=== PATIENT | male | born 1980 | race African-American/Black ===

== ENCOUNTER 2019-02-09 21:33 | Inpatient (IN) ==
[2019-02-09] MEDS ORDERED: NICOTINE 21 MG/24 HR PATCH TRANSDERM PRN (22:48)
[2019-02-09] MEDS ORDERED: ONDANSETRON 4 MG/2 ML VIAL IV PRN (22:48)
[2019-02-09] MEDS ORDERED: hydrALAZINE 20 MG/1 ML VIAL IV PRN (22:48)
[2019-02-09 22:55] LABS: Basophils # 0.1 10*3/uL (0.0-0.2); Eosinophils # 0.4 10*3/uL (0.0-0.87); Eosinophils % 5.3 % (0.00-10.9); Hematocrit 31.1 VOL% (42.0-52.0); Hemoglobin 9.7 GM/DL (14.0-18.0); Immature Granulocytes % 0.4 %; Immature Granulocytes Absolute 0.03 #; Lymphocytes # 0.8 10*3/uL (1.4-4.0); Lymphocytes % 11.5 % (21.2-54.2); Mean Corpuscular HGB Conc 31.2 GM/DL (32-36); Mean Platelet Volume 11.6 FL (9.6-12.0); Monocytes % 8.1 % (1.7-12.7); Neutrophils % 73.7 % (38.7-73.9); Platelet Count 139 T/CUMM (130-400); Red Blood Count 3.38 MC/CUMM (3.8-5.5); Red Cell Distribution Width 16.4 % (9.3-17.3)
[2019-02-09 23:11] LABS: PT Patient Result 10.5 SECS
[2019-02-09 23:14] LABS: Albumin 3.4 G/DL (3.4-5.0); Bilirubin,Total 0.4 MG/DL (0.2-1.0); Calcium 8.7 MG/DL (8.5-10.1); Osmolality,Calculated 295.4 MOS/KG (273-304); Total Protein 7.1 G/DL (6.4-8.3)
[2019-02-10] MEDS ORDERED: amLODIPine 10 MG TABLET PO ONE (03:33)
[2019-02-10 05:47] LABS: Basophils # 0.1 10*3/uL (0.0-0.2); Basophils % 0.9 % (0.0-0.8); Eosinophils # 0.3 10*3/uL (0.0-0.87); Eosinophils % 6.5 % (0.00-10.9); Hematocrit 26.1 VOL% (42.0-52.0); Hemoglobin 8.4 GM/DL (14.0-18.0); Immature Granulocytes % 0.2 %; Immature Granulocytes Absolute 0.01 #; Lymphocytes # 0.7 10*3/uL (1.4-4.0); Lymphocytes % 12.3 % (21.2-54.2); Mean Corpuscular HGB Conc 32.2 GM/DL (32-36); Mean Corpuscular Volume 91.6 FL (87-102); Mean Platelet Volume 11.4 FL (9.6-12.0); Monocytes % 8.7 % (1.7-12.7); Neutrophils % 71.4 % (38.7-73.9); Platelet Count 122 T/CUMM (130-400); Red Blood Count 2.85 MC/CUMM (3.8-5.5); Red Cell Distribution Width 16.2 % (9.3-17.3); White Blood Count 5.3 T/CUMM (4-12)
[2019-02-10] MEDS: hydrALAZINE 20 MG/1 ML VIAL IV PRN (06:17)
[2019-02-10] MEDS: DILTIAZEM CD 120 MG CAPSULE PO SCH (08:00)
[2019-02-10] MEDS: METOPROLOL SUCCINATE XL 100 MG TABLET PO SCH (08:00)
[2019-02-10] MEDS: amLODIPine 10 MG TABLET PO SCH (08:00)
[2019-02-10] MEDS ORDERED: CLINDAMYCIN INJ 900 MG in PREMIX 1 EACH IV ONE (08:31)
[2019-02-10] MEDS ORDERED: BUPIVACAINE MPF 0.25% /EPI 30 ML VIAL ONE (12:10)
[2019-02-10] MEDS ORDERED: HEPARIN 5,000 UNIT/1 ML VIAL ONE ×2 (12:10→12:14)
[2019-02-10] MEDS ORDERED: LIDOCAINE 1% 20 ML VIAL ONE (12:10)
[2019-02-10] MEDS ORDERED: SODIUM CHLORIDE 0.9% 250 ML IV SCH (12:30)
[2019-02-10] MEDS ORDERED: PROPOFOL 200 MG/20 ML VIAL IV ONE (13:27)
[2019-02-10] MEDS ORDERED: MIDAZOLAM 2 MG/2 ML VIAL ONE (13:28)
[2019-02-10] MEDS ORDERED: fentaNYL 100 MCG/2 ML VIAL ONE (13:28)
[2019-02-10] MEDS: MORPHINE 4 MG/1 ML VIAL IV PRN (17:48)
[2019-02-11] MEDS: MORPHINE 4 MG/1 ML VIAL IV PRN ×3 (01:00→21:20)
[2019-02-11 05:59] LABS: Basophils % 0.8 % (0.0-0.8); Eosinophils # 0.4 10*3/uL (0.0-0.87); Eosinophils % 7.7 % (0.00-10.9); Hematocrit 28.8 VOL% (42.0-52.0); Hemoglobin 9.1 GM/DL (14.0-18.0); Immature Granulocytes % 0.2 %; Immature Granulocytes Absolute 0.01 #; Lymphocytes # 0.5 10*3/uL (1.4-4.0); Lymphocytes % 10.6 % (21.2-54.2); Mean Corpuscular HGB Conc 31.6 GM/DL (32-36); Mean Corpuscular Volume 91.4 FL (87-102); Mean Platelet Volume 11.6 FL (9.6-12.0); Monocytes % 8.7 % (1.7-12.7); Platelet Count 103 T/CUMM (130-400); Red Blood Count 3.15 MC/CUMM (3.8-5.5); Red Cell Distribution Width 15.8 % (9.3-17.3); White Blood Count 4.8 T/CUMM (4-12)
[2019-02-11 06:26] LABS: Calcium 8.6 MG/DL (8.5-10.1); Osmolality,Calculated 283.5 MOS/KG (273-304)
[2019-02-11] MEDS: amLODIPine 10 MG TABLET PO SCH (08:17)
[2019-02-11] MEDS: METOPROLOL SUCCINATE XL 100 MG TABLET PO SCH (08:18)
[2019-02-11] MEDS: DILTIAZEM CD 120 MG CAPSULE PO SCH (08:18)
[2019-02-11] MEDS: CALCIUM ACETATE 667 MG CAPSULE PO SCH ×2 (12:10→16:38)
[2019-02-12] MEDS: hydrALAZINE 20 MG/1 ML VIAL IV PRN (04:19)
[2019-02-12 04:45] LABS: Basophils % 0.4 % (0.0-0.8); Eosinophils # 0.6 10*3/uL (0.0-0.87); Eosinophils % 11.1 % (0.00-10.9); Hematocrit 26.7 VOL% (42.0-52.0); Hemoglobin 8.3 GM/DL (14.0-18.0); Immature Granulocytes % 0.4 %; Immature Granulocytes Absolute 0.02 #; Lymphocytes # 0.6 10*3/uL (1.4-4.0); Lymphocytes % 11.3 % (21.2-54.2); Mean Corpuscular HGB Conc 31.1 GM/DL (32-36); Mean Corpuscular Volume 91.1 FL (87-102); Mean Platelet Volume 12.3 FL (9.6-12.0); Monocytes % 9.8 % (1.7-12.7); Platelet Count 104 T/CUMM (130-400); Red Blood Count 2.93 MC/CUMM (3.8-5.5); Red Cell Distribution Width 15.5 % (9.3-17.3); White Blood Count 5.2 T/CUMM (4-12)
[2019-02-12 05:12] LABS: Calcium 8.4 MG/DL (8.5-10.1); Osmolality,Calculated 290.8 MOS/KG (273-304)
[2019-02-12 06:01] LABS: Eosinophils 12 % (0-10); Hypochromasia 1+; Lymphocytes 7 % (20-55); Platelet Estimate Decreased; Segmented Neutrophils 74 % (50-85); Total Cells Counted 100
[2019-02-12] MEDS: CALCIUM ACETATE 667 MG CAPSULE PO SCH ×3 (08:02→17:04)
[2019-02-12] MEDS: DILTIAZEM CD 120 MG CAPSULE PO SCH (13:47)
[2019-02-12] MEDS: amLODIPine 10 MG TABLET PO SCH (13:48)
[2019-02-12] MEDS: METOPROLOL SUCCINATE XL 100 MG TABLET PO SCH (13:48)
[2019-02-13] MEDS: CALCIUM ACETATE 667 MG CAPSULE PO SCH ×3 (09:25→17:25)
[2019-02-13] MEDS: DILTIAZEM CD 120 MG CAPSULE PO SCH (09:25)
[2019-02-13] MEDS: amLODIPine 10 MG TABLET PO SCH (09:26)
[2019-02-13] MEDS: METOPROLOL SUCCINATE XL 100 MG TABLET PO SCH (09:26)
[2019-02-13 16:57] VITALS: BP 151/75
== END 2019-02-13 18:02 | disposition home or self-care (01) | DRG 252 ==
LOC: N.ED 21:33 → SUATTDRO 22:48 → N.EDINP 22:48 → N.ICU 02-10 00:03 → N.3E 02-11 12:41
PROVIDERS: ADMIT Internal Medicine Nephrology; ATTEND Internal Medicine

== ENCOUNTER 2019-05-17 15:42 | Inpatient (IN) ==
[2019-05-17 20:24] LABS: Basophils # 0.1 10*3/uL (0.0-0.2); Basophils % 0.5 % (0.0-0.8); Eosinophils # 0.3 10*3/uL (0.0-0.87); Eosinophils % 2.1 % (0.00-10.9); Hematocrit 27.2 VOL% (42.0-52.0); Hemoglobin 8.8 GM/DL (14.0-18.0); Immature Granulocytes % 1.4 %; Immature Granulocytes Absolute 0.19 #; Lymphocytes # 1.2 10*3/uL (1.4-4.0); Lymphocytes % 8.7 % (21.2-54.2); Mean Corpuscular HGB Conc 32.4 GM/DL (32-36); Mean Corpuscular Volume 93.5 FL (87-102); Mean Platelet Volume 10.3 FL (9.6-12.0); Monocytes % 8.9 % (1.7-12.7); NRBC # 0.03 10*3/uL; Neutrophils % 78.4 % (38.7-73.9); Platelet Count 286 T/CUMM (130-400); Red Blood Count 2.91 MC/CUMM (3.8-5.5); Red Cell Distribution Width 18.3 % (9.3-17.3); White Blood Count 13.3 T/CUMM (4-12)
[2019-05-17 20:45] LABS: Alanine Aminotransferase 18 U/L (16-61); Albumin 3.3 G/DL (3.4-5.0); Alkaline Phosphatase 106 U/L (45-117); Aspartate Amino Transferase 25 U/L (0-37); Bilirubin,Total < 0.39 MG/DL (0.2-1.0); Blood Urea Nitrogen 42 MG/DL (7-18); Calcium 9.4 MG/DL (8.5-10.1); Estimated Glom Filtration Rate 8 ML/MIN; Glucose 89 MG/DL (74-106); Osmolality,Calculated 277.2 MOS/KG (273-304); Total Protein 8.2 G/DL (6.4-8.3)
[2019-05-17] MEDS ORDERED: ENOXAPARIN 30 MG/0.3 ML SYRINGE SUBCUT STA (21:55)
[2019-05-17] MEDS ORDERED: CLINDAMYCIN INJ 600 MG in PREMIX 1 EACH IV STA (21:56)
[2019-05-17] MEDS ORDERED: ENOXAPARIN 80 MG/0.8 ML SYRINGE SUBCUT ONE (22:43)
[2019-05-17] MEDS ORDERED: ONDANSETRON 4 MG/2 ML VIAL IV PRN (23:22)
[2019-05-18] MEDS: ACETAMINOPHEN 325 MG TABLET PO PRN (00:55)
[2019-05-18] MEDS ORDERED: hydrALAZINE 20 MG/1 ML VIAL IV PRN (02:10)
[2019-05-18] MEDS: PIPERACILLIN/TAZOBACTAM 3,375 MG in SODIUM CHLORIDE 0.9% 100 ML IV SCH ×2 (03:54→16:32)
[2019-05-18 06:04] LABS: Basophils # 0.1 10*3/uL (0.0-0.2); Basophils % 0.5 % (0.0-0.8); Eosinophils # 0.2 10*3/uL (0.0-0.87); Eosinophils % 1.6 % (0.00-10.9); Hematocrit 22.7 VOL% (42.0-52.0); Hemoglobin 7.1 GM/DL (14.0-18.0); Immature Granulocytes % 1.1 %; Immature Granulocytes Absolute 0.14 #; Lymphocytes # 1.2 10*3/uL (1.4-4.0); Lymphocytes % 9.2 % (21.2-54.2); Mean Corpuscular HGB Conc 31.3 GM/DL (32-36); Mean Corpuscular Volume 92.3 FL (87-102); Mean Platelet Volume 10.5 FL (9.6-12.0); Monocytes % 12.2 % (1.7-12.7); NRBC # 0.02 10*3/uL; Neutrophils % 75.4 % (38.7-73.9); Platelet Count 218 T/CUMM (130-400); Red Blood Count 2.46 MC/CUMM (3.8-5.5); Red Cell Distribution Width 17.9 % (9.3-17.3); White Blood Count 12.9 T/CUMM (4-12)
[2019-05-18] MEDS ORDERED: SODIUM CHLORIDE 0.9% 1,000 ML IV PRN (06:54)
[2019-05-18 06:58] LABS: Albumin 2.8 G/DL (3.4-5.0); Bilirubin,Total 1.5 MG/DL (0.2-1.0); Calcium 8.8 MG/DL (8.5-10.1); Osmolality,Calculated 277.4 MOS/KG (273-304); Total Protein 6.7 G/DL (6.4-8.3)
[2019-05-18] MEDS: ENOXAPARIN 80 MG/0.8 ML SYRINGE SUBCUT SCH (07:16)
[2019-05-18] MEDS ORDERED: PANTOPRAZOLE 40 MG TABLET PO SCH (09:00)
[2019-05-18] MEDS ORDERED: LIDOCAINE 1%/EPI INJ 20 ML VIAL ONE (12:23)
[2019-05-18] MEDS ORDERED: BUPIVACAINE MPF 0.25% 30 ML VIAL ONE (12:23)
[2019-05-18] MEDS ORDERED: ceFAZolin 1,000 MG VIAL ONE (12:42)
[2019-05-18] MEDS: CALCIUM ACETATE 667 MG CAPSULE PO SCH ×2 (13:03→16:51)
[2019-05-18] MEDS: CALCIUM CARBONATE CHEW 500 MG TABLET PO SCH ×2 (13:03→16:50)
[2019-05-18] MEDS ORDERED: VANCOMYCIN INJ 1,000 MG in SODIUM CHLORIDE 0.9% 250 ML IV ONE (13:08)
[2019-05-18] MEDS ORDERED: HEPARIN 5,000 UNIT/1 ML VIAL ONE ×2 (13:15→14:01)
[2019-05-18] MEDS ORDERED: PROPOFOL 200 MG/20 ML VIAL IV ONE (13:52)
[2019-05-18] MEDS ORDERED: MIDAZOLAM 2 MG/2 ML VIAL ONE (13:53)
[2019-05-18] MEDS ORDERED: KETAMINE 500 MG/10 ML VIAL ONE (13:53)
[2019-05-18] MEDS ORDERED: hydrALAZINE 20 MG/1 ML VIAL ONE (13:53)
[2019-05-18] MEDS ORDERED: fentaNYL 100 MCG/2 ML VIAL ONE (13:53)
[2019-05-18] MEDS ORDERED: METOPROLOL TARTRATE 5 MG/5 ML VIAL IV ONE (13:54)
[2019-05-18] MEDS ORDERED: SODIUM CHLORIDE 0.9% 200 ML IV ONE (13:54)
[2019-05-18] MEDS: METOPROLOL SUCCINATE XL 100 MG TABLET PO SCH (14:12)
[2019-05-18] MEDS ORDERED: ACETAMINOPHEN 1,000 MG/100 ML VIAL IV ONE (14:55)
[2019-05-18] MEDS ORDERED: ACETAMINOPHEN IV ONE (15:06)
[2019-05-18] MEDS: amLODIPine 10 MG TABLET PO SCH (15:27)
[2019-05-18] MEDS: DILTIAZEM CD 120 MG CAPSULE PO SCH (15:27)
[2019-05-19] MEDS: PIPERACILLIN/TAZOBACTAM 3,375 MG in SODIUM CHLORIDE 0.9% 100 ML IV SCH ×2 (01:30→15:40)
[2019-05-19] MEDS: ACETAMINOPHEN 325 MG TABLET PO PRN (04:45)
[2019-05-19 05:25] LABS: Basophils # 0.1 10*3/uL (0.0-0.2); Basophils % 0.5 % (0.0-0.8); Eosinophils # 0.3 10*3/uL (0.0-0.87); Eosinophils % 2.5 % (0.00-10.9); Hematocrit 23.2 VOL% (42.0-52.0); Hemoglobin 7.5 GM/DL (14.0-18.0); Immature Granulocytes % 0.9 %; Immature Granulocytes Absolute 0.12 #; Lymphocytes % 7.7 % (21.2-54.2); Mean Corpuscular HGB Conc 32.3 GM/DL (32-36); Mean Corpuscular Volume 88.5 FL (87-102); Mean Platelet Volume 10.5 FL (9.6-12.0); Monocytes % 12.7 % (1.7-12.7); Neutrophils % 75.7 % (38.7-73.9); Platelet Count 190 T/CUMM (130-400); Red Blood Count 2.62 MC/CUMM (3.8-5.5); Red Cell Distribution Width 18.2 % (9.3-17.3); White Blood Count 12.8 T/CUMM (4-12)
[2019-05-19 05:41] LABS: Calcium 8.3 MG/DL (8.5-10.1); Osmolality,Calculated 285.4 MOS/KG (273-304)
[2019-05-19] MEDS: ENOXAPARIN 80 MG/0.8 ML SYRINGE SUBCUT SCH (06:08)
[2019-05-19] MEDS: CALCIUM ACETATE 667 MG CAPSULE PO SCH ×3 (07:26→17:54)
[2019-05-19] MEDS: CALCIUM CARBONATE CHEW 500 MG TABLET PO SCH ×3 (07:27→17:54)
[2019-05-19] MEDS: DILTIAZEM CD 120 MG CAPSULE PO SCH (08:35)
[2019-05-19] MEDS: amLODIPine 10 MG TABLET PO SCH (08:36)
[2019-05-19] MEDS: METOPROLOL SUCCINATE XL 100 MG TABLET PO SCH (08:36)
[2019-05-19 08:40] LABS: PT Patient Result 11.2 SECS (9.6-12.2)
[2019-05-19] MEDS: PANTOPRAZOLE 40 MG TABLET PO SCH (09:36)
[2019-05-19] MEDS ORDERED: SODIUM CHLORIDE 0.9% 1,000 ML IV PRN (10:12)
[2019-05-19 10:29] LABS: Albumin 2.5 G/DL (3.4-5.0)
[2019-05-19] MEDS ORDERED: VANCOMYCIN INJ 500 MG in SODIUM CHLORIDE 0.9% 100 ML IV PRN (11:52)
[2019-05-19] MEDS ORDERED: HEPARIN 10,000 UNIT/10 ML VIAL IV SCH (12:30)
[2019-05-19] MEDS: ALBUTEROL/IPRATROPIUM 3 ML NEB RESP TX SCH ×2 (16:28→20:00)
[2019-05-19] MEDS ORDERED: GENTAMICIN INJ 120 MG in PREMIX 1 EACH IV PRN (17:00)
[2019-05-19] MEDS ORDERED: GENTAMICIN INJ 180 MG in SODIUM CHLORIDE 0.9% 100 ML IV ONE (17:00)
[2019-05-19] MEDS ORDERED: VANCOMYCIN INJ 1,000 MG in SODIUM CHLORIDE 0.9% 250 ML IV ONE (18:00)
[2019-05-20] MEDS: ALBUTEROL/IPRATROPIUM 3 ML NEB RESP TX SCH ×4 (00:40→18:41)
[2019-05-20] MEDS: PIPERACILLIN/TAZOBACTAM 3,375 MG in SODIUM CHLORIDE 0.9% 100 ML IV SCH ×2 (03:03→14:52)
[2019-05-20 04:24] LABS: Basophils % 0.4 % (0.0-0.8); Eosinophils # 0.4 10*3/uL (0.0-0.87); Eosinophils % 3.8 % (0.00-10.9); Hematocrit 26.1 VOL% (42.0-52.0); Hemoglobin 8.6 GM/DL (14.0-18.0); Lymphocytes % 9.4 % (21.2-54.2); Mean Corpuscular Volume 88.2 FL (87-102); Monocytes % 11.9 % (1.7-12.7); Neutrophils % 73.5 % (38.7-73.9); Platelet Count 187 T/CUMM (130-400); Red Blood Count 2.96 MC/CUMM (3.8-5.5); Red Cell Distribution Width 17.2 % (9.3-17.3); White Blood Count 10.4 T/CUMM (4-12)
[2019-05-20 04:42] LABS: Calcium 8.1 MG/DL (8.5-10.1); Osmolality,Calculated 284.8 MOS/KG (273-304)
[2019-05-20] MEDS: ENOXAPARIN 80 MG/0.8 ML SYRINGE SUBCUT SCH (07:46)
[2019-05-20] MEDS: CALCIUM ACETATE 667 MG CAPSULE PO SCH ×3 (09:07→17:18)
[2019-05-20] MEDS: METOPROLOL SUCCINATE XL 100 MG TABLET PO SCH (09:08)
[2019-05-20] MEDS: PANTOPRAZOLE 40 MG TABLET PO SCH (09:08)
[2019-05-20] MEDS: CALCIUM CARBONATE CHEW 500 MG TABLET PO SCH ×3 (09:08→17:19)
[2019-05-20] MEDS: amLODIPine 10 MG TABLET PO SCH (09:09)
[2019-05-20] MEDS: DILTIAZEM CD 120 MG CAPSULE PO SCH (09:13)
[2019-05-20] MEDS: methylPREDNISolone SOD SUC 40 MG/1 ML VIAL IV SCH ×2 (14:54→21:30)
[2019-05-21] MEDS: ALBUTEROL/IPRATROPIUM 3 ML NEB RESP TX SCH ×4 (00:49→19:56)
[2019-05-21] MEDS: PIPERACILLIN/TAZOBACTAM 3,375 MG in SODIUM CHLORIDE 0.9% 100 ML IV SCH ×2 (03:28→18:39)
[2019-05-21] MEDS: methylPREDNISolone SOD SUC 40 MG/1 ML VIAL IV SCH ×2 (03:30→18:39)
[2019-05-21 05:59] LABS: Basophils % 0.2 % (0.0-0.8); Hematocrit 28.1 VOL% (42.0-52.0); Hemoglobin 8.9 GM/DL (14.0-18.0); Immature Granulocytes % 1.6 %; Immature Granulocytes Absolute 0.15 #; Lymphocytes # 0.4 10*3/uL (1.4-4.0); Lymphocytes % 4.4 % (21.2-54.2); Mean Corpuscular HGB Conc 31.7 GM/DL (32-36); Mean Corpuscular Volume 89.8 FL (87-102); Mean Platelet Volume 10.5 FL (9.6-12.0); Monocytes % 1.1 % (1.7-12.7); Neutrophils % 92.7 % (38.7-73.9); Platelet Count 214 T/CUMM (130-400); Red Blood Count 3.13 MC/CUMM (3.8-5.5); Red Cell Distribution Width 16.8 % (9.3-17.3); White Blood Count 9.1 T/CUMM (4-12)
[2019-05-21] MEDS: ENOXAPARIN 80 MG/0.8 ML SYRINGE SUBCUT SCH (06:01)
[2019-05-21 06:31] LABS: Calcium 8.1 MG/DL (8.5-10.1); Osmolality,Calculated 291.2 MOS/KG (273-304)
[2019-05-21] MEDS ORDERED: methylPREDNISolone SOD SUC 40 MG/1 ML VIAL IV SCH (07:00)
[2019-05-21 07:38] LABS: Lymphocytes 6 % (20-55); Segmented Neutrophils 93 % (50-85); Total Cells Counted 100
[2019-05-21 07:39] LABS: Anisocytosis Slight; Platelet Estimate Normal; Target Cells Few
[2019-05-21 07:40] LABS: Hypochromasia 1+; Microcytosis 1+
[2019-05-21 07:41] LABS: Ovalocytes Few
[2019-05-21 07:42] LABS: Tear Drop Cells Few
[2019-05-21] MEDS: CALCIUM ACETATE 667 MG CAPSULE PO SCH ×3 (10:22→19:04)
[2019-05-21] MEDS: CALCIUM CARBONATE CHEW 500 MG TABLET PO SCH ×3 (10:23→19:04)
[2019-05-21] MEDS: PANTOPRAZOLE 40 MG TABLET PO SCH (10:23)
[2019-05-21] MEDS ORDERED: BUPIVACAINE MPF 0.25% 30 ML VIAL ONE (10:37)
[2019-05-21] MEDS ORDERED: PROPOFOL 200 MG/20 ML VIAL IV ONE (11:34)
[2019-05-21] MEDS ORDERED: SODIUM CHLORIDE 0.9% 250 ML IV ONE (11:35)
[2019-05-21] MEDS ORDERED: METOPROLOL TARTRATE 5 MG/5 ML VIAL IV ONE (11:35)
[2019-05-21] MEDS ORDERED: KETAMINE 500 MG/10 ML VIAL ONE (11:35)
[2019-05-21] MEDS ORDERED: hydrALAZINE 20 MG/1 ML VIAL ONE (11:35)
[2019-05-21] MEDS ORDERED: MIDAZOLAM 2 MG/2 ML VIAL ONE (11:35)
[2019-05-21 11:41] LABS: Lymphocytes,Pleural Fluid 85 %; Neutrophils,Pleural Fluid 12 %
[2019-05-21 11:42] LABS: RBC,Pleural Fluid 931 T/CUMM
[2019-05-21] MEDS ORDERED: ONDANSETRON 4 MG/2 ML VIAL IV PRN (11:52)
[2019-05-21] MEDS ORDERED: HYDROmorphone 2 MG/1 ML VIAL IV PRN (11:52)
[2019-05-21] MEDS: METOPROLOL SUCCINATE XL 100 MG TABLET PO SCH (13:01)
[2019-05-21] MEDS: DILTIAZEM CD 120 MG CAPSULE PO SCH (13:01)
[2019-05-21] MEDS: amLODIPine 10 MG TABLET PO SCH (13:02)
[2019-05-21] MEDS ORDERED: GENTAMICIN INJ 120 MG in PREMIX 1 EACH IV ONE (17:00)
[2019-05-21] MEDS ORDERED: VANCOMYCIN INJ 500 MG in SODIUM CHLORIDE 0.9% 100 ML IV ONE (17:30)
[2019-05-22] MEDS: ALBUTEROL/IPRATROPIUM 3 ML NEB RESP TX SCH ×4 (01:16→18:51)
[2019-05-22 05:32] LABS: Basophils % 0.1 % (0.0-0.8); Hematocrit 28.6 VOL% (42.0-52.0); Hemoglobin 8.9 GM/DL (14.0-18.0); Immature Granulocytes % 3.1 %; Lymphocytes # 0.6 10*3/uL (1.4-4.0); Lymphocytes % 3.4 % (21.2-54.2); Mean Corpuscular HGB Conc 31.1 GM/DL (32-36); Mean Corpuscular Volume 90.5 FL (87-102); Mean Platelet Volume 9.9 FL (9.6-12.0); Monocytes % 3.6 % (1.7-12.7); NRBC # 0.05 10*3/uL; Neutrophils % 89.8 % (38.7-73.9); Platelet Count 237 T/CUMM (130-400); Red Blood Count 3.16 MC/CUMM (3.8-5.5); Red Cell Distribution Width 16.6 % (9.3-17.3)
[2019-05-22 05:51] LABS: Calcium 8.2 MG/DL (8.5-10.1); Osmolality,Calculated 285.8 MOS/KG (273-304)
[2019-05-22] MEDS: ENOXAPARIN 80 MG/0.8 ML SYRINGE SUBCUT SCH (06:06)
[2019-05-22] MEDS: methylPREDNISolone SOD SUC 40 MG/1 ML VIAL IV SCH ×5 (06:06→20:54)
[2019-05-22 06:24] LABS: Band Neutrophils 1 % (0-10); Hypochromasia 1+; Lymphocytes 5 % (20-55); Microcytosis 1+; Segmented Neutrophils 92 % (50-85); Total Cells Counted 100
[2019-05-22 06:25] LABS: Anisocytosis 1+; Platelet Estimate Normal
[2019-05-22] MEDS: CALCIUM CARBONATE CHEW 500 MG TABLET PO SCH ×3 (09:03→16:31)
[2019-05-22] MEDS: DILTIAZEM CD 120 MG CAPSULE PO SCH (09:03)
[2019-05-22] MEDS: METOPROLOL SUCCINATE XL 100 MG TABLET PO SCH (09:04)
[2019-05-22] MEDS: CALCIUM ACETATE 667 MG CAPSULE PO SCH ×3 (09:04→16:31)
[2019-05-22] MEDS: amLODIPine 10 MG TABLET PO SCH (09:04)
[2019-05-22] MEDS: PANTOPRAZOLE 40 MG TABLET PO SCH (09:07)
[2019-05-22] MEDS: PIPERACILLIN/TAZOBACTAM 3,375 MG in SODIUM CHLORIDE 0.9% 100 ML IV SCH ×3 (11:25→22:48)
[2019-05-22] MEDS: DOXAZOSIN 1 MG TABLET PO SCH (20:53)
[2019-05-23] MEDS: ALBUTEROL/IPRATROPIUM 3 ML NEB RESP TX SCH ×4 (01:57→20:13)
[2019-05-23] MEDS: ENOXAPARIN 80 MG/0.8 ML SYRINGE SUBCUT SCH (06:07)
[2019-05-23 07:39] LABS: Basophils % 0.1 % (0.0-0.8); Hematocrit 28.8 VOL% (42.0-52.0); Immature Granulocytes % 2.9 %; Lymphocytes # 0.6 10*3/uL (1.4-4.0); Lymphocytes % 3.5 % (21.2-54.2); Mean Corpuscular HGB Conc 31.3 GM/DL (32-36); Mean Platelet Volume 10.3 FL (9.6-12.0); Monocytes % 2.6 % (1.7-12.7); NRBC # 0.18 10*3/uL; Neutrophils % 90.9 % (38.7-73.9); Platelet Count 268 T/CUMM (130-400); Red Cell Distribution Width 16.4 % (9.3-17.3); White Blood Count 17.5 T/CUMM (4-12)
[2019-05-23 07:52] LABS: Calcium 7.9 MG/DL (8.5-10.1); Osmolality,Calculated 289.2 MOS/KG (273-304)
[2019-05-23 08:11] LABS: Anisocytosis 1+; Hypochromasia 1+; Lymphocytes 3 % (20-55); Microcytosis 1+; Nucleated Red Blood Cells 3 (0-5); Platelet Estimate Normal; Segmented Neutrophils 95 % (50-85); Total Cells Counted 100
[2019-05-23] MEDS: amLODIPine 10 MG TABLET PO SCH (08:27)
[2019-05-23] MEDS: CALCIUM CARBONATE CHEW 500 MG TABLET PO SCH ×3 (08:27→17:12)
[2019-05-23] MEDS: PANTOPRAZOLE 40 MG TABLET PO SCH (08:27)
[2019-05-23] MEDS: METOPROLOL SUCCINATE XL 100 MG TABLET PO SCH (08:28)
[2019-05-23] MEDS: DILTIAZEM CD 120 MG CAPSULE PO SCH (08:28)
[2019-05-23] MEDS: CALCIUM ACETATE 667 MG CAPSULE PO SCH ×3 (08:28→17:12)
[2019-05-23] MEDS: methylPREDNISolone SOD SUC 40 MG/1 ML VIAL IV SCH ×2 (09:10→20:55)
[2019-05-23] MEDS: PIPERACILLIN/TAZOBACTAM 3,375 MG in SODIUM CHLORIDE 0.9% 100 ML IV SCH (11:27)
[2019-05-23] MEDS: DOXAZOSIN 1 MG TABLET PO SCH (20:55)
[2019-05-24] MEDS: ALBUTEROL/IPRATROPIUM 3 ML NEB RESP TX SCH ×3 (00:31→14:59)
[2019-05-24] MEDS: PIPERACILLIN/TAZOBACTAM 3,375 MG in SODIUM CHLORIDE 0.9% 100 ML IV SCH (01:07)
[2019-05-24 04:29] LABS: Basophils % 0.1 % (0.0-0.8); Hematocrit 28.5 VOL% (42.0-52.0); Hemoglobin 9.1 GM/DL (14.0-18.0); Immature Granulocytes % 2.9 %; Immature Granulocytes Absolute 0.52 #; Lymphocytes # 0.5 10*3/uL (1.4-4.0); Lymphocytes % 2.9 % (21.2-54.2); Mean Corpuscular HGB Conc 31.9 GM/DL (32-36); Mean Corpuscular Volume 90.2 FL (87-102); Mean Platelet Volume 10.7 FL (9.6-12.0); Monocytes % 1.6 % (1.7-12.7); NRBC # 0.26 10*3/uL; Neutrophils % 92.5 % (38.7-73.9); Platelet Count 279 T/CUMM (130-400); Red Blood Count 3.16 MC/CUMM (3.8-5.5); Red Cell Distribution Width 16.5 % (9.3-17.3); White Blood Count 18.2 T/CUMM (4-12)
[2019-05-24 04:42] LABS: Calcium 7.5 MG/DL (8.5-10.1); Osmolality,Calculated 297.1 MOS/KG (273-304)
[2019-05-24 04:59] LABS: Hypochromasia 1+; Lymphocytes 3 % (20-55); Microcytosis 1+; Nucleated Red Blood Cells 2 (0-5); Platelet Estimate Adequate; Segmented Neutrophils 95 % (50-85); Total Cells Counted 100
[2019-05-24] MEDS: ENOXAPARIN 80 MG/0.8 ML SYRINGE SUBCUT SCH (06:10)
[2019-05-24] MEDS ORDERED: predniSONE 20 MG TABLET PO SCH (11:00)
[2019-05-24] MEDS: CALCIUM ACETATE 667 MG CAPSULE PO SCH ×3 (11:00→17:19)
[2019-05-24] MEDS: CALCIUM CARBONATE CHEW 500 MG TABLET PO SCH ×3 (11:01→17:19)
[2019-05-24] MEDS: PANTOPRAZOLE 40 MG TABLET PO SCH (11:02)
[2019-05-24] MEDS: amLODIPine 10 MG TABLET PO SCH (11:02)
[2019-05-24] MEDS: METOPROLOL SUCCINATE XL 100 MG TABLET PO SCH (11:02)
[2019-05-24] MEDS: DILTIAZEM CD 120 MG CAPSULE PO SCH (11:03)
[2019-05-24 11:54] VITALS: BP 186/87
[2019-05-24] MEDS: methylPREDNISolone SOD SUC 40 MG/1 ML VIAL IV SCH (19:21)
[2019-05-24] MEDS ORDERED: cephALEXin 500 MG CAPSULE PO SCH (21:00)
== END 2019-05-24 17:38 | disposition home health service (06) | DRG 907 ==
LOC: N.ED 15:42 → N.EDINP 23:22 → SUATTDRO 23:22 → N.3E 23:43
PROVIDERS: ADMIT Hospitalist; ATTEND Internal Medicine Nephrology
PROC: IRTHORA (2019-05-21 09:05)

== ENCOUNTER 2019-12-04 09:08 | Inpatient (IN) ==
[2019-12-04] MEDS ORDERED: diphenhydrAMINE CAP 25 MG CAPSULE PO STA (10:18)
[2019-12-04] MEDS ORDERED: FAMOTIDINE 20 MG TABLET PO STA (10:19)
[2019-12-04] MEDS ORDERED: methylPREDNISolone SOD SUC 125 MG/2 ML VIAL IM STA (10:19)
[2019-12-04 10:30] LABS: Basophils # 0.1 10*3/uL (0.0-0.2); Basophils % 0.7 % (0.0-0.8); Eosinophils # 0.2 10*3/uL (0.0-0.87); Eosinophils % 3.5 % (0.00-10.9); Hematocrit 29.1 VOL% (42.0-52.0); Hemoglobin 9.3 GM/DL (14.0-18.0); Immature Granulocytes % 0.4 %; Immature Granulocytes Absolute 0.03 #; Lymphocytes # 0.6 10*3/uL (1.4-4.0); Lymphocytes % 8.4 % (21.2-54.2); Mean Corpuscular Volume 92.4 FL (87-102); Mean Platelet Volume 11.5 FL (9.6-12.0); Monocytes % 6.4 % (1.7-12.7); Neutrophils % 80.6 % (38.7-73.9); Platelet Count 133 T/CUMM (130-400); Red Blood Count 3.15 MC/CUMM (3.8-5.5); Red Cell Distribution Width 17.7 % (9.3-17.3); White Blood Count 6.9 T/CUMM (4-12)
[2019-12-04 10:38] LABS: Albumin 3.2 G/DL (3.4-5.0); Bilirubin,Total 0.4 MG/DL (0.2-1.0); Calcium 8.8 MG/DL (8.5-10.1); Osmolality,Calculated 284.5 MOS/KG (273-304)
[2019-12-04 11:02] LABS: Eosinophils 5 % (0-10); Lymphocytes 8 % (20-55); Segmented Neutrophils 83 % (50-85); Total Cells Counted 100
[2019-12-04 11:03] LABS: Hypochromasia 1+; Microcytosis 1+; Platelet Estimate Adequate
[2019-12-04] MEDS ORDERED: cloNIDine 0.1 MG TABLET PO STA (11:43)
[2019-12-04] MEDS: DILTIAZEM CD 120 MG CAPSULE PO SCH (13:56)
[2019-12-04] MEDS: amLODIPine 10 MG TABLET PO SCH (13:56)
[2019-12-04] MEDS ORDERED: ONDANSETRON 4 MG/2 ML VIAL IV PRN (13:56)
[2019-12-04] MEDS ORDERED: GLUCAGON 1 MG VIAL IM PRN (13:56)
[2019-12-04] MEDS ORDERED: DEXTROSE 10% 250 ML BAG IV PRN (13:56)
[2019-12-04] MEDS: METOPROLOL SUCCINATE XL 100 MG TABLET PO SCH (13:56)
[2019-12-04] MEDS: PANTOPRAZOLE 40 MG TABLET PO SCH (13:56)
[2019-12-04] MEDS: NIFEdipine 10 MG CAPSULE PO PRN (15:55)
[2019-12-04] MEDS: INSULIN LISPRO 100 UNIT/ML SUBCUT SCH ×2 (16:22→20:38)
[2019-12-04] MEDS ORDERED: niCARdipine INJ 50 MG in SODIUM CHLORIDE 0.9% 230 ML IV PRN (16:46)
[2019-12-04] MEDS: CALCIUM ACETATE 667 MG CAPSULE PO SCH (17:41)
[2019-12-04] MEDS: DOXAZOSIN 1 MG TABLET PO SCH (20:45)
[2019-12-04] MEDS: ENOXAPARIN 30 MG/0.3 ML SYRINGE SUBCUT SCH (20:45)
[2019-12-05] MEDS: NIFEdipine 10 MG CAPSULE PO PRN ×4 (01:26→23:42)
[2019-12-05 03:19] LABS: Basophils % 0.2 % (0.0-0.8); Hematocrit 26.7 VOL% (42.0-52.0); Hemoglobin 8.4 GM/DL (14.0-18.0); Immature Granulocytes % 0.5 %; Immature Granulocytes Absolute 0.03 #; Lymphocytes # 0.5 10*3/uL (1.4-4.0); Lymphocytes % 9.1 % (21.2-54.2); Mean Corpuscular HGB Conc 31.5 GM/DL (32-36); Mean Corpuscular Volume 91.1 FL (87-102); Mean Platelet Volume 11.5 FL (9.6-12.0); Monocytes % 8.5 % (1.7-12.7); Neutrophils % 81.7 % (38.7-73.9); Platelet Count 139 T/CUMM (130-400); Red Blood Count 2.93 MC/CUMM (3.8-5.5); Red Cell Distribution Width 17.9 % (9.3-17.3); White Blood Count 5.9 T/CUMM (4-12)
[2019-12-05 03:27] LABS: Calcium 8.5 MG/DL (8.5-10.1); Osmolality,Calculated 283.1 MOS/KG (273-304)
[2019-12-05 03:36] LABS: Troponin I 0.064 NG/ML (0.00-0.045)
[2019-12-05 05:04] LABS: Hypochromasia 1+
[2019-12-05 05:06] LABS: Microcytosis 1+
[2019-12-05 05:07] LABS: Platelet Estimate Adequate
[2019-12-05] MEDS: INSULIN LISPRO 100 UNIT/ML SUBCUT SCH ×4 (08:18→21:29)
[2019-12-05] MEDS: CALCIUM ACETATE 667 MG CAPSULE PO SCH ×3 (08:23→18:10)
[2019-12-05] MEDS: METOPROLOL SUCCINATE XL 100 MG TABLET PO SCH (08:24)
[2019-12-05] MEDS: DILTIAZEM CD 120 MG CAPSULE PO SCH (08:24)
[2019-12-05] MEDS: amLODIPine 10 MG TABLET PO SCH (08:25)
[2019-12-05] MEDS: PANTOPRAZOLE 40 MG TABLET PO SCH (08:26)
[2019-12-05] MEDS: DOXAZOSIN 1 MG TABLET PO SCH (21:28)
[2019-12-05] MEDS: ENOXAPARIN 30 MG/0.3 ML SYRINGE SUBCUT SCH (21:29)
[2019-12-06] MEDS: NIFEdipine 10 MG CAPSULE PO PRN (05:04)
[2019-12-06 06:22] LABS: Basophils % 0.6 % (0.0-0.8); Eosinophils # 0.2 10*3/uL (0.0-0.87); Eosinophils % 3.5 % (0.00-10.9); Hemoglobin 7.9 GM/DL (14.0-18.0); Immature Granulocytes % 0.5 %; Immature Granulocytes Absolute 0.03 #; Lymphocytes # 0.8 10*3/uL (1.4-4.0); Mean Corpuscular HGB Conc 31.6 GM/DL (32-36); Mean Corpuscular Volume 93.3 FL (87-102); Monocytes % 6.3 % (1.7-12.7); NRBC # 0.03 10*3/uL; Neutrophils % 76.1 % (38.7-73.9); Platelet Count 139 T/CUMM (130-400); Red Blood Count 2.68 MC/CUMM (3.8-5.5); White Blood Count 6.2 T/CUMM (4-12)
[2019-12-06 06:33] LABS: Calcium 8.4 MG/DL (8.5-10.1); Osmolality,Calculated 288.2 MOS/KG (273-304)
[2019-12-06 06:49] LABS: Platelet Estimate Adequate
[2019-12-06 06:51] LABS: Anisocytosis 2+
[2019-12-06 06:52] LABS: Hypochromasia Slight
[2019-12-06] MEDS: PANTOPRAZOLE 40 MG TABLET PO SCH (08:23)
[2019-12-06] MEDS: amLODIPine 10 MG TABLET PO SCH (08:23)
[2019-12-06] MEDS: METOPROLOL SUCCINATE XL 100 MG TABLET PO SCH (08:24)
[2019-12-06] MEDS: DILTIAZEM CD 180 MG CAPSULE PO SCH (08:25)
[2019-12-06] MEDS: CALCIUM ACETATE 667 MG CAPSULE PO SCH ×3 (08:26→17:00)
[2019-12-06] MEDS: INSULIN LISPRO 100 UNIT/ML SUBCUT SCH ×4 (09:30→21:22)
[2019-12-06] MEDS ORDERED: HEPARIN 10,000 UNIT/10 ML VIAL IV PRN (10:28)
[2019-12-06] MEDS: HEPARIN 5,000 UNIT/1 ML VIAL SUBCUT SCH ×2 (11:28→21:18)
[2019-12-06] MEDS ORDERED: hydrALAZINE 20 MG/1 ML VIAL IV PRN (11:40)
[2019-12-06] MEDS: DOXAZOSIN 1 MG TABLET PO SCH (21:18)
[2019-12-07] MEDS: NIFEdipine 10 MG CAPSULE PO PRN (03:39)
[2019-12-07] MEDS: INSULIN LISPRO 100 UNIT/ML SUBCUT SCH ×4 (08:37→20:54)
[2019-12-07] MEDS: DILTIAZEM CD 180 MG CAPSULE PO SCH (08:48)
[2019-12-07] MEDS: CALCIUM ACETATE 667 MG CAPSULE PO SCH ×3 (08:48→17:56)
[2019-12-07] MEDS: METOPROLOL SUCCINATE XL 100 MG TABLET PO SCH (08:49)
[2019-12-07] MEDS: PANTOPRAZOLE 40 MG TABLET PO SCH (08:49)
[2019-12-07] MEDS: amLODIPine 10 MG TABLET PO SCH (08:49)
[2019-12-07] MEDS: HEPARIN 5,000 UNIT/1 ML VIAL SUBCUT SCH ×2 (08:49→20:55)
[2019-12-07] MEDS: DOXAZOSIN 1 MG TABLET PO SCH (20:53)
[2019-12-07 23:27] LABS: Calcium 8.1 MG/DL (8.5-10.1); Osmolality,Calculated 292.1 MOS/KG (273-304)
[2019-12-07 23:35] LABS: Basophils # 0.1 10*3/uL (0.0-0.2); Basophils % 1.1 % (0.0-0.8); Eosinophils # 0.4 10*3/uL (0.0-0.87); Eosinophils % 5.6 % (0.00-10.9); Hematocrit 25.4 VOL% (42.0-52.0); Hemoglobin 7.9 GM/DL (14.0-18.0); Immature Granulocytes % 0.6 %; Immature Granulocytes Absolute 0.04 #; Lymphocytes # 0.8 10*3/uL (1.4-4.0); Lymphocytes % 12.5 % (21.2-54.2); Mean Corpuscular HGB Conc 31.1 GM/DL (32-36); Mean Corpuscular Volume 94.8 FL (87-102); Mean Platelet Volume 12.2 FL (9.6-12.0); Monocytes % 8.1 % (1.7-12.7); NRBC # 0.05 10*3/uL; Neutrophils % 72.1 % (38.7-73.9); Platelet Count 165 T/CUMM (130-400); Red Blood Count 2.68 MC/CUMM (3.8-5.5); Red Cell Distribution Width 17.6 % (9.3-17.3); White Blood Count 6.6 T/CUMM (4-12)
[2019-12-08 04:25] LABS: Polychromasia Few
[2019-12-08 04:26] LABS: Hypochromasia Slight; Platelet Estimate Normal
[2019-12-08 05:52] LABS: Calcium 8.3 MG/DL (8.5-10.1)
[2019-12-08] MEDS: INSULIN LISPRO 100 UNIT/ML SUBCUT SCH ×4 (07:52→21:54)
[2019-12-08] MEDS: METOPROLOL SUCCINATE XL 100 MG TABLET PO SCH (08:01)
[2019-12-08] MEDS: amLODIPine 10 MG TABLET PO SCH (08:01)
[2019-12-08] MEDS: DILTIAZEM CD 180 MG CAPSULE PO SCH (08:01)
[2019-12-08] MEDS ORDERED: ceFAZolin 1,000 MG VIAL ONE (08:56)
[2019-12-08 09:44] LABS: Basophils # 0.1 10*3/uL (0.0-0.2); Basophils % 1.2 % (0.0-0.8); Eosinophils # 0.4 10*3/uL (0.0-0.87); Eosinophils % 6.5 % (0.00-10.9); Hematocrit 25.5 VOL% (42.0-52.0); Hemoglobin 8.1 GM/DL (14.0-18.0); Immature Granulocytes % 0.8 %; Immature Granulocytes Absolute 0.05 #; Lymphocytes # 0.8 10*3/uL (1.4-4.0); Lymphocytes % 12.5 % (21.2-54.2); Mean Corpuscular HGB Conc 31.8 GM/DL (32-36); Mean Corpuscular Volume 94.4 FL (87-102); Mean Platelet Volume 12.3 FL (9.6-12.0); Monocytes % 8.7 % (1.7-12.7); NRBC # 0.07 10*3/uL; Neutrophils % 70.3 % (38.7-73.9); Platelet Count 172 T/CUMM (130-400)
[2019-12-08] MEDS: CALCIUM ACETATE 667 MG CAPSULE PO SCH ×3 (09:50→17:50)
[2019-12-08] MEDS ORDERED: fentaNYL 100 MCG/2 ML VIAL ONE (11:14)
[2019-12-08] MEDS ORDERED: LIDOCAINE 2% 5 ML VIAL ONE (11:14)
[2019-12-08] MEDS ORDERED: GLYCOPYRROLATE 0.4 MG/2 ML VIAL ONE (11:14)
[2019-12-08] MEDS ORDERED: SEVOFLURANE 1 UNIT/15 MINUTE INH ONE (11:14)
[2019-12-08] MEDS ORDERED: propofoL 200 MG/20 ML VIAL IV ONE (11:14)
[2019-12-08] MEDS ORDERED: MIDAZOLAM 2 MG/2 ML VIAL ONE (11:14)
[2019-12-08] MEDS ORDERED: ROCURONIUM 100 MG/10 ML VIAL IV ONE (11:15)
[2019-12-08] MEDS ORDERED: PHENYLEPHRINE 1 MG/10 ML SYRINGE IV ONE (11:15)
[2019-12-08] MEDS ORDERED: SODIUM CHLORIDE 0.9% 250 ML IV ONE (11:15)
[2019-12-08] MEDS: PANTOPRAZOLE 40 MG TABLET PO SCH (12:59)
[2019-12-08] MEDS: HEPARIN 5,000 UNIT/1 ML VIAL SUBCUT SCH ×2 (12:59→21:54)
[2019-12-08 13:48] LABS: Calcium 7.8 MG/DL (8.5-10.1); Osmolality,Calculated 289.4 MOS/KG (273-304)
[2019-12-08] MEDS: DOXAZOSIN 1 MG TABLET PO SCH (21:54)
[2019-12-09 04:59] LABS: Basophils # 0.1 10*3/uL (0.0-0.2); Basophils % 1.1 % (0.0-0.8); Eosinophils # 0.4 10*3/uL (0.0-0.87); Eosinophils % 6.5 % (0.00-10.9); Hematocrit 24.7 VOL% (42.0-52.0); Hemoglobin 7.7 GM/DL (14.0-18.0); Immature Granulocytes % 0.6 %; Immature Granulocytes Absolute 0.03 #; Lymphocytes # 0.7 10*3/uL (1.4-4.0); Lymphocytes % 13.1 % (21.2-54.2); Mean Corpuscular HGB Conc 31.2 GM/DL (32-36); Mean Platelet Volume 11.8 FL (9.6-12.0); Monocytes % 8.5 % (1.7-12.7); NRBC # 0.05 10*3/uL; Neutrophils % 70.2 % (38.7-73.9); Platelet Count 159 T/CUMM (130-400); Red Cell Distribution Width 18.6 % (9.3-17.3); White Blood Count 5.4 T/CUMM (4-12)
[2019-12-09 05:12] LABS: Osmolality,Calculated 275.5 MOS/KG (273-304)
[2019-12-09] MEDS: INSULIN LISPRO 100 UNIT/ML SUBCUT SCH ×4 (07:36→21:50)
[2019-12-09] MEDS: DILTIAZEM CD 180 MG CAPSULE PO SCH (09:04)
[2019-12-09] MEDS: CALCIUM ACETATE 667 MG CAPSULE PO SCH ×3 (09:04→16:01)
[2019-12-09] MEDS: amLODIPine 10 MG TABLET PO SCH (09:05)
[2019-12-09] MEDS: PANTOPRAZOLE 40 MG TABLET PO SCH (09:05)
[2019-12-09] MEDS: HEPARIN 5,000 UNIT/1 ML VIAL SUBCUT SCH ×2 (09:06→21:30)
[2019-12-09] MEDS: METOPROLOL SUCCINATE XL 100 MG TABLET PO SCH (09:09)
[2019-12-09] MEDS: DOXAZOSIN 1 MG TABLET PO SCH (21:29)
[2019-12-10] MEDS: NIFEdipine 10 MG CAPSULE PO PRN (01:27)
[2019-12-10] MEDS ORDERED: ceFAZolin 1,000 MG in SYRINGE 1 EACH IV ONE (06:30)
[2019-12-10 07:16] LABS: Basophils % 0.7 % (0.0-0.8); Eosinophils # 0.3 10*3/uL (0.0-0.87); Eosinophils % 5.6 % (0.00-10.9); Hemoglobin 8.1 GM/DL (14.0-18.0); Immature Granulocytes % 0.8 %; Immature Granulocytes Absolute 0.05 #; Lymphocytes # 0.6 10*3/uL (1.4-4.0); Mean Corpuscular HGB Conc 31.2 GM/DL (32-36); Mean Corpuscular Volume 95.2 FL (87-102); Mean Platelet Volume 11.8 FL (9.6-12.0); NRBC # 0.06 10*3/uL; Neutrophils % 73.9 % (38.7-73.9); Platelet Count 165 T/CUMM (130-400); Red Blood Count 2.73 MC/CUMM (3.8-5.5); Red Cell Distribution Width 19.2 % (9.3-17.3); White Blood Count 5.9 T/CUMM (4-12)
[2019-12-10] MEDS: INSULIN LISPRO 100 UNIT/ML SUBCUT SCH ×3 (07:29→17:21)
[2019-12-10 07:32] LABS: Calcium 8.3 MG/DL (8.5-10.1); Osmolality,Calculated 282.4 MOS/KG (273-304)
[2019-12-10] MEDS: CALCIUM ACETATE 667 MG CAPSULE PO SCH ×3 (07:52→17:21)
[2019-12-10] MEDS: PANTOPRAZOLE 40 MG TABLET PO SCH (08:01)
[2019-12-10] MEDS: HEPARIN 5,000 UNIT/1 ML VIAL SUBCUT SCH (08:01)
[2019-12-10] MEDS: METOPROLOL SUCCINATE XL 100 MG TABLET PO SCH (11:54)
[2019-12-10] MEDS: DILTIAZEM CD 180 MG CAPSULE PO SCH (11:54)
[2019-12-10] MEDS: amLODIPine 10 MG TABLET PO SCH (11:54)
[2019-12-10] MEDS ORDERED: BUPIVACAINE MPF 0.25% 30 ML VIAL ONE (11:56)
[2019-12-10] MEDS ORDERED: LIDOCAINE 1%/EPI INJ 20 ML VIAL ONE (11:56)
[2019-12-10] MEDS ORDERED: SODIUM CHLORIDE 0.9% 250 ML IV SCH (12:30)
[2019-12-10] MEDS ORDERED: MIDAZOLAM 2 MG/2 ML VIAL ONE (12:40)
[2019-12-10] MEDS ORDERED: GLUCAGON 1 MG VIAL IM PRN (13:57)
[2019-12-10] MEDS ORDERED: DEXTROSE 50% 25 GM/50 ML VIAL IV PRN (13:57)
[2019-12-10] MEDS ORDERED: LIDOCAINE/PRILOCAINE CREAM 5 GM TUBE TOP ONE (14:30)
[2019-12-10 16:05] VITALS: BP 168/84
[2019-12-10] MEDS ORDERED: ONDANSETRON 4 MG TABLET PO ONE (17:52)
== END 2019-12-10 18:06 | disposition home or self-care (01) | DRG 252 ==
LOC: N.ED 09:08 → N.EDINP 12:34 → SUATTDRO 12:34 → N.ICU 13:44 → N.3E 12-07 17:09
PROVIDERS: ADMIT Internal Medicine; ATTEND Family Medicine